=== PATIENT | female | born 1985 | race African-American/Black ===

== ENCOUNTER 2019-12-01 10:35 | Emergency (ER) | payer OTHER, SELFPAY ==
[2019-12-01 10:58] VITALS: BP 134/108; PULSE 67; RESP 18; TEMP 36.7; O2SAT 100
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
[2019-12-01] MEDS: DIAZEPAM 5 MG TABLET PO (11:32)
[2019-12-01] MEDS: KETOROLAC (*BKC) 60 MG/2 ML VIAL IM (11:32)
== END 2019-12-01 12:52 | disposition home or self-care (01) ==
PROVIDERS: Emergency Provider Emergency Medicine
DX: M54.2 Cervicalgia (principal); M54.6 Pain in thoracic spine
CPT/HCPCS: 96372; 99283; A9270; J1885

== ENCOUNTER 2020-04-21 12:13 | Emergency (ER) | payer OTHER, SELFPAY ==
--- NOTE | ~2020-04-21 | XR_ITS ---
EXAMINATION: XR foot LT min 3V DATE: 04/21/2020 12:31 INDICATION: Left foot pain. Injury. TECHNIQUE: 4 views of left foot were obtained. COMPARISON: None. FINDINGS: Bone alignment is normal. No fracture. There is mild osteoarthritis of talonavicular joint and first metatarsophalangeal joint. There are enthesophytes at the posterior and plantar aspects of calcaneal tuberosity. IMPRESSION: 1. Mild polyarticular osteoarthritis. Reviewed, dictated and finalized at location B.
[2020-04-21 12:17] VITALS: BP 132/74; PULSE 72; RESP 15; TEMP 36.1; O2SAT 100
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
== END 2020-04-21 13:30 | disposition home or self-care (01) ==
LOC: ANHED 13:14
PROVIDERS: Emergency Provider Emergency Medicine
DX: S93.602A Unspecified sprain of left foot, initial encounter (principal); W51.XXXA Accidental striking against or bumped into by another person, initial encounter
CPT/HCPCS: 73630; 99283